=== PATIENT | male | born 1990 ===

== ENCOUNTER 2022-10-21 00:30 | Emergency (ER) | payer SELFPAY | END 2022-10-21 02:38 | disposition home or self-care (01) | LOC: DL.ED 00:39 | DX: S02.2XXA Fracture of nasal bones, initial encounter for closed fracture (principal); Y04.2XXA Assault by strike against or bumped into by another person, initial encounter; Y92.039 Unspecified place in apartment as the place of occurrence of the external cause | CPT/HCPCS: 70450; 70486; 72125; 99282; 99284 ==